=== PATIENT | female | born 1985 | race Caucasian/White ===

== ENCOUNTER 2017-06-18 18:22 | Emergency (ER) | payer OTHER ==
[~2017-06-18] VITALS: Ht 167.6 cm; Wt 83.0 kg
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
[2017-06-18 19:57] LABS: ABSOLUTE BASOPHIL COUNT 0 /CUMM (0.0-0.2); ABSOLUTE EOSINOPHIL COUNT 0 /CUMM (0.0-0.7); ABSOLUTE GRANULOCYTE CT 4.8 /CUMM (1.4-6.5); ABSOLUTE LYMPH COUNT 1.5 /CUMM (1.2-3.4); ABSOLUTE MONOCYTE COUNT 0.4 /CUMM (0.10-0.60); BASOPHIL % 0.3 % (0.0-2.0); EOSINOPHIL % 0.2 % (0-5); GRANULOCYTE % 70.7 % (42.2-75.2); HEMATOCRIT 39.2 % (37-47); MEAN CORPUSCULAR HGB 28.3 PG (27.0-31.0); MEAN CORPUSCULAR HGB CONC 32.8 G/DL (33.0-37.0); MEAN CORPUSCULAR VOLUME 86.2 FL (81.0-99.0); MEAN PLATELET VOLUME 7.7 FL (7.4-10.4); PLATELET COUNT 265 /CUMM (130-400); RBC DISTRIBUTION WIDTH 13.1 % (11.5-14.5); RED BLOOD CELL CT 4.55 /CUMM (4.20-5.40); WHITE BLOOD CELL COUNT 6.8 /CUMM (4.8-10.8)
--- NOTE | 2017-06-18 21:33 | ED PSY CRISIS COLLATERAL NOTE ---
See Addendum Collateral Note Collateral Note Family/Inform/Bubba Contacts: SW met with the patients parents, Kathya and Matt Fonseca (house- [phone]) , for collateral information. Kathya and Matt report that they are her adopted parents and that she has resided with them since she was 8 years old. They report that the patient was removed from her mother at 5 years old and was in 6 other foster homes, before coming to live with them. They state that they have never known her to have any mental health issues or subsequent treatment since living with them. Kathya notes that the patient did have 1 previous hospitalization at the age of 5, at [facility], however they are not clear for what. They report that she did have contact with her biological mom (who had some mental health issues), until she 1 year ago. They believe that her biological father is alive, however state that she has never had any contact with him. They have never known her to make any suicidal statements or make any suicide attempts. They stated that she did however make a comment to her ex- boyfriend this evening, something to the effect of "don't come to my ." She was dating her ex-boyfriend for the last 5 years, however broke up 3 weeks ago. Her parents state that they believe the break up was because, there was an age difference (he is 23 years old), and that they grew apart. They report that he is a police magistrate in [place]. They state that she has been very depressed and tearful, however she has continued to attend school and work. Her parents state that she attends school at [employer] and she is obtaining her Masters in Social Work. 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 Her parents state that she moved out of her ex-boyfriends house and that she has been staying with a friend, despite offers to reside with her parents and her older sister. They state that they think she is very depressed and that she needs help , specifically outpatient at this time. When asked about whether or not they were concerned about her safety, they said "they did not think that she would hurt herself, but that they did not want to be wrong." They will be available tomorrow for additional collateral and / or clarification. They note that if the patient is discharged tomorrow she is still welcome to come and live with them or their oldest daughter.
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
[2017-06-19 10:15] VITALS: BP 118/72
== END 2017-06-19 11:24 ==
LOC: ERH 18:22
PROVIDERS: Physician Assistant Medical
DX: F32.9 Major depressive disorder, single episode, unspecified (principal); R45.851 Suicidal ideations
CPT/HCPCS: 80307; 81001; 81025; G0463; G0480